=== PATIENT | male | born 1985 | race Two or more races ===

== ENCOUNTER 2017-02-13 00:38 | Emergency (ER) | payer OTHER ==
[2017-02-13 00:46] VITALS: TEMP 98.1
[2017-02-13] MEDS ORDERED: Dexamethasone 4 mg/1 ml IM STA (01:47)
[2017-02-13] MEDS ORDERED: Lidocaine 5% Patch TD STA (01:48)
[2017-02-13] MEDS ORDERED: Dexamethasone 4 mg/1 ml ONE (01:51)
[2017-02-13] MEDS ORDERED: Lidocaine 5% Patch TD ONE (01:51)
--- NOTE | 2017-02-13 02:18 | C.PDOC ---
History Of Present Illness Patient is a 32 year old male who presents to the ER with a complaint of left sided lower back pain radiating to the left leg. Patient reports having a Hx of sciatica in the past and states the pain is similar. Denies trauma, fever, numbness, weakness or bladder/bowel incontinence. Time Seen by Provider: 02/13/17 00:52 Chief Complaint (Nursing): Back Pain History Per: Patient History/Exam Limitations: no limitations Onset/Duration Of Symptoms: Days (7) Current Symptoms Are (Timing): Still Present Quality Of Discomfort: Unable To Describe Previous Symptoms: Chronic Pain (Sciatica) Associated Symptoms: denies: Incontinence, New Weakness, New Numbness Exacerbating Factor(s): Nothing Recent travel outside of the [place]: No Past Medical History Reviewed: Historical Data, Nursing Documentation, Vital Signs Vital Signs: Last Vital Signs Temp 98.1 F 02/13/17 00:43 Pulse 75 02/13/17 02:24 Resp 18 02/13/17 02:24 BP 124/75 02/13/17 02:24 Pulse Ox 96 02/13/17 03:18 - Medical History PMH: Back Problems Surgical History: No Surg Hx Family History: States: Unknown Family Hx - Social History Hx Tobacco Use: No Hx Alcohol Use: No Hx Substance Use: No - Immunization History Hx Tetanus Toxoid Vaccination: No Hx Influenza Vaccination: No Hx Pneumococcal Vaccination: No Review Of Systems Constitutional: Negative for: Fever Genitourinary: Negative for: Incontinence Musculoskeletal: Positive for: Back Pain (Left sided lower), Leg Pain (Left) Neurological: Negative for: Weakness, Numbness Physical Exam - Physical Exam Appears: Non-toxic Skin: Normal Color, Warm, Dry Head: Atraumatic, Normacephalic Oral Mucosa: Moist Chest: Symmetrical, No Tenderness Cardiovascular: Rhythm Regular, No Murmur Respiratory: Normal Breath Sounds, No Rales, No Rhonchi, No Wheezing Gastrointestinal/Abdominal: Soft, No Tenderness Back: No CVA Tenderness, No Vertebral Tenderness, Paraspinal Tenderness (Lumbar) Neurological/Psych: Oriented x3, Normal Speech, Normal Cognition, Normal Motor, Normal Sensation Gait: Steady ED Course And Treatment O2 Sat by Pulse Oximetry: 96 (Room air) Pulse Ox Interpretation: Normal Progress Note: Decadron and toradol administered. Lidoderm applied. Medical Decision Making Medical Decision Making: On re-exam, the patient reports improvement of symptoms. Lungs are CTA, heart is RRR, abdomen is soft, non-tender and tolerating PO well. Ambulatory in the ED with stedy gait. Follow up with the medical doctor within 1-2 days. Return if worsened. Disposition - Disposition Referrals: [facility] [Outside] Disposition: HOME/ ROUTINE Disposition Time: 02:17 Condition: GOOD Additional Instructions: Follow up with the medical doctor within 1-2 days. Return if worsened. Prescriptions: diaZEpam [Valium] 5 mg PO TID #21 tab Lidocaine 5% [Lidoderm] 1 patch TOP DAILY #10 patch Naproxen [Naprosyn] 500 mg PO BID #20 tab Instructions: Lumbar Radiculopathy (ED) Forms: Work Excuse - Clinical Impression Clinical Impression: Lumbar radiculopathy - Scribe Statement The provider has reviewed the documentation as recorded by the Scribe Arnaud Mendenhall All medical record entries made by the Scribe were at my direction and personally dictated by me. I have reviewed the chart and agree that the record accurately reflects my personal performance of the history, physical exam, medical decision making, and the department course for this patient. I have also personally directed, reviewed, and agree with the discharge instructions and disposition.
[2017-02-13 02:25] VITALS: BP 124/75; PULSE 75; RESP 18
[2017-02-13 03:14] VITALS: O2SAT 96
== END 2017-02-13 02:25 | disposition home or self-care (01) ==
LOC: C.ER 00:38
DX: M54.16 Radiculopathy, lumbar region (principal)
CPT/HCPCS: 96372; 99283; J1100; J1885